=== PATIENT | male | born 1990 ===

== ENCOUNTER 2017-01-15 11:14 | Emergency (ER) | payer OTHER ==
[2017-01-15 11:24] VITALS: RESP 18
[2017-01-15] MEDS ORDERED: Dexamethasone 4 mg/1 ml IV STA (11:47)
[2017-01-15] MEDS ORDERED: Dexamethasone 4 mg/1 ml ONE (12:24)
--- NOTE | 2017-01-15 12:24 | C.PDOC ---
History Of Present Illness 26 yr old male presents to the ER with complaints of sore throat over the past 4 -5 days. Patient states he took Amoxicillin which he had at home but states the symptoms worsened. Patient reports he was seen by the clinic yesterday and prescription of Augmentin was given, however today he started having difficulty in swallowing and change in voice. Otherwise, patient denies fever, chills, chest pain, SOB, nausea, vomiting or neck pain. Time Seen by Provider: 01/15/17 11:39 Chief Complaint (Nursing): ENT Problem History Per: Patient History/Exam Limitations: None Onset/Duration Of Symptoms: Days (4-5) Current Symptoms Are (Timing): Still Present Past Medical History Reviewed: Historical Data, Nursing Documentation, Vital Signs Vital Signs: Last Vital Signs Temp 99.5 F 01/15/17 11:22 Pulse 90 01/15/17 14:14 Resp 18 01/15/17 14:14 BP 120/72 01/15/17 14:14 Pulse Ox 96 01/15/17 14:14 - Medical History PMH: Peripheral Edema Family History: States: No Known Family Hx - Social History Hx Alcohol Use: No Hx Substance Use: No - Immunization History Hx Tetanus Toxoid Vaccination: Yes Hx Influenza Vaccination: No Hx Pneumococcal Vaccination: No Review Of Systems Except As Marked, All Systems Reviewed And Found Negative. Constitutional: Negative for: Fever, Chills ENT: Positive for: Throat Pain (Sore throat ), Other ((+) Difficulty swallowing. Change in voice.) Cardiovascular: Negative for: Chest Pain Respiratory: Negative for: Shortness of Breath Gastrointestinal: Negative for: Nausea, Vomiting Musculoskeletal: Negative for: Neck Pain Physical Exam - Physical Exam Appears: Non-toxic, No Acute Distress Skin: Warm, Dry, No Rash Head: Atraumatic, Normacephalic Eye(s): bilateral: Normal Inspection, PERRL, EOMI Ear(s): Bilateral: Normal Oral Mucosa: Moist Tongue: Normal Appearing Lips: Normal Appearing Throat: Erythema, Exudate, Other ((+) Swelling. (+) Uvular deviation.) Neck: Normal, Normal ROM, Supple Lymphatic: Adenopathy (Anterior cervical lymphadenopathy) Chest: Symmetrical, No Tenderness Cardiovascular: Rhythm Regular, No Murmur Respiratory: Normal Breath Sounds, No Rales, No Rhonchi, No Stridor, No Wheezing Gastrointestinal/Abdominal: Bowel Sounds (normal), Soft, No Tenderness, No Organomegaly Extremity: Normal ROM, No Swelling Neurological/Psych: Oriented x3, Normal Speech, Normal Motor, Normal Sensation Gait: Steady ED Course And Treatment - Laboratory Results Result Diagrams: 01/15/17 12:31 01/15/17 12:31 O2 Sat by Pulse Oximetry: 100 (RA) Pulse Ox Interpretation: Normal Medical Decision Making Medical Decision Making: PLAN: * CT - Soft Tissue Neck * CBC * CMP * Decadron IVP * Toradol IVP Disposition - Disposition Disposition Time: 14:53 Condition: FAIR Forms: [employer] Software ([employer]ian) - Clinical Impression Clinical Impression: Pharyngitis - PA / SCHOOL ADMINISTRATOR / Resident Statement MD/DO has reviewed & agrees with the documentation as recorded. - Scribe Statement The provider has reviewed the documentation as recorded by the Scribe Tracy Sanches All medical record entries made by the Scribe were at my direction and personally dictated by me. I have reviewed the chart and agree that the record accurately reflects my personal performance of the history, physical exam, medical decision making, and the department course for this patient. I have also personally directed, reviewed, and agree with the discharge instructions and disposition. Physician Patient Turnover Patient Signed Over To: Jes Reyes Handoff Comments: Pending CT scan results
[2017-01-15 12:36] LABS: BASO % 0.4 % (0.0-2.0); HEMATOCRIT 44.6 % (35.0-51.0); LYMPH # 1.3 K/uL (1.0-4.3); LYMPH % 10.4 % (20.0-40.0); MEAN CELL VOLUME 88.8 fL (80.0-94.0); MEAN CORPUSCULAR HEMOGLOBIN 30.3 pg (27.0-31.0); MEAN CORPUSCULAR HGB CONC 34.2 g/dL (33.0-37.0); MEAN PLATELET VOLUME 7.5 fL (7.2-11.7); MONO % 7.4 % (0.0-10.0); RED CELL DISTRIBUTION WIDTH 13.2 % (11.5-14.5)
[2017-01-15 12:48] LABS: CHLORIDE 99 mmol/L (98-107); SODIUM 142 mmol/L (132-148)
[2017-01-15 12:49] LABS: POTASSIUM 4.3 mmol/L (3.6-5.2)
[2017-01-15 12:51] LABS: ALB/GLOB RATIO 1.5 (1.0-2.1); ALKALINE PHOSPHATASE 56 U/L (38-126); ALT/SGPT 37 U/L (21-72); AST/SGOT 26 U/L (17-59); BILIRUBIN,TOTAL 0.9 mg/dL (0.2-1.3); BLOOD UREA NITROGEN 16 mg/dL (9-20); CARBON DIOXIDE 23 mmol/L (22-30); GFR AFRICAN-AMERICAN > 60; GLUCOSE,RANDOM 96 mg/dL (75-110); TOTAL PROTEIN 7.9 g/dL (6.3-8.3)
[2017-01-15 12:52] LABS: CALCIUM 9.3 mg/dl (8.6-10.4)
[2017-01-15] MEDS ORDERED: Iodixanol 320 MG/ML 100 ML BOTTLE IV ONE (13:57)
--- NOTE | 2017-01-15 15:27 | CT ---
PROCEDURE: CT NECK WITH CONTRAST HISTORY: sore throat r/o peritonsillar abscess COMPARISON: None TECHNIQUE: CT of the neck with intravenous contrast. Coronal and sagittal reformats generated. Intravenous contrast dose: 100 mL of Visipaque 320 Radiation dose: DLP 405.74 mGy-cm This CT exam was performed using one or more of the following dose reduction techniques: Automated exposure control, adjustment of the mA and/or kV according to patient size, and/or use of iterative reconstruction technique. FINDINGS: NASOPHARYNX: Unremarkable. SUPRAHYOID NECK: There is moderate enlargement of the right palatine tonsil. There is approximately 1.5 centimeter hypodensity at the enlarged tonsils suggestive of phlegmon or an early abscess formation. Otherwise the suprahyoid neck is unremarkable. Mild deviation of the upper airway to the left noted. INFRAHYOID NECK: Unremarkable larynx, hypopharynx, and supraglottic space. Vocal cords intact. MASS: None. GLANDS: Parotid and submandibular glands unremarkable. Normal size thyroid gland, without nodule. LYMPH NODES: Slightly prominent upper neck lymph nodes larger on the right. CERVICAL SPINE: No fracture or focal lesion. VASCULAR STRUCTURES: Unremarkable. OTHER FINDINGS: Mild EN subcutaneous soft tissue swelling and thickening of the right platysmas muscle noted at the right upper neck. IMPRESSION: Moderate enlargement of the right palatine tonsil contains approximately 1.5 centimeter hypodense focus may represent phlegmon or abscess formation.
[2017-01-15] MEDS ORDERED: Clindamycin 600mg/50ml NS 600 MG/50 ML BAG IVPB ONE (16:01)
[2017-01-15] MEDS ORDERED: Lidocaine 1%/Epinephrine 1:100000 30 ml vial IJ ONE (16:01)
[2017-01-15] MEDS ORDERED: Lidocaine 2% w Epi 1:100,000 Inj IJ ONE (16:08)
[2017-01-15 17:51] VITALS: BP 117/70; PULSE 95; TEMP 98.2; O2SAT 99
--- NOTE | 2017-01-16 05:27 | OP ---
PROCEDURE DATE: 01/15/2017 PREOPERATIVE DIAGNOSIS: Right peritonsillar abscess. POSTOPERATIVE DIAGNOSIS: Right peritonsillar abscess. SIGNIFICANT FINDINGS: Pus noted in the right peritonsillar area. DESCRIPTION OF PROCEDURE: The patient was placed in a seated position. The peritonsillar area was injected with lidocaine with epinephrine. An #11 blade was used to make an incision, the peritonsillar area clamped and dissected down. Pus was noted coming out. Bleeding was controlled with time. The patient tolerated the procedure well. Nam Goodson MD
== END 2017-01-15 17:52 | disposition home or self-care (01) ==
LOC: EDSEX 11:14 → C.ER 11:14
DX: J02.9 Acute pharyngitis, unspecified (principal)
CPT/HCPCS: 70491; 80053; 85025; 96365; 96375; 99283; J1100; J1885; Q9967